=== PATIENT | male | born 1990 | race Caucasian/White ===

== ENCOUNTER 2018-09-19 14:43 | Emergency (ER) | payer SELFPAY ==
[2018-09-19] MEDS: HYDROCODONE/APAP (5/325) TAB PO (16:15)
== END 2018-09-19 18:16 | disposition home or self-care (01) ==
LOC: FTE 18:16
DX: M25.511 Pain in right shoulder (principal); M25.562 Pain in left knee
CPT/HCPCS: 73030; 73030-RT; 73562; 99284-25